=== PATIENT | male | born 2000 ===

== ENCOUNTER 2020-10-10 12:41 | Inpatient (IN) ==
[2020-10-10] MEDS ORDERED: Haloperidol 5 mg/ml SDV IV/IM 5 MG/ML AMP IM ONE ×2 (13:57→18:56)
[2020-10-10] MEDS ORDERED: Diazepam INJ CARPUJECT 5 MG/ML IM ONE (13:57)
[2020-10-10] MEDS ORDERED: Diazepam INJ CARPUJECT 5 MG/ML ONE (13:57)
[2020-10-10] MEDS ORDERED: Haloperidol 5 mg/ml SDV IV/IM 5 MG/ML AMP ONE (13:58)
[2020-10-10] MEDS ORDERED: LORazepam 2 mg VIAL 1 ml IM ONE (18:56)
[2020-10-10] MEDS ORDERED: Lorazepam PYXIS KEY PRN (18:56)
[2020-10-10] MEDS ORDERED: LORazepam 2 mg VIAL 1 ml ONE (18:57)
[2020-10-10 19:00] LABS: ABS Basophils 0.1 10^3/ul (0-0.2); ABS Eosinophils 0.2 10^3/ul (0-0.6); ABS Lymphocytes 3.7 10^3/ul (1.0-4.8); ABS Monocytes 1.2 10^3/ul (0-0.8); ABS Neutrophils 6.7 10^3/ul (1.5-7.7); Eosinophil % 1.6 %; Hematocrit 45 % (42-52); Hemoglobin 15.2 g/dL (14.0-18.0); Lymphocyte % 30.6 %; Mean Corpuscular HGB Conc 34 g/dL (31-36); Mean Corpuscular Hemoglobin 28 pg (27-31); Mean Corpuscular Volume 84 fL (80-94); Mean Platelet Volume 8.3 fL (7.4-10.4); Nucleated Red Blood Cells % 0.1; Platelet Count 257 10^3/uL (150-450); Red Blood Count 5.37 10^6 /uL (4.18-5.48); Red Cell Distribution Width 13 % (10-15)
[2020-10-10 19:20] LABS: ALT 15 U/L (7-52); AST 27 U/L (13-39); Albumin 4.2 g/dL (3.2-5.2); Albumin/Globulin Ratio 1.7 (1-3); Alkaline Phosphatase 49 U/L (35-149); Anion Gap 8 mmol/L (2-11); Blood Urea Nitrogen 13 mg/dL (6-24); CO2 Carbon Dioxide 22 mmol/L (22-32); Calcium 9.4 mg/dL (8.6-10.3); Chloride 108 mmol/L (101-111); EGFR African American 156.7 (>60); EGFR Non-African American 129.5 (>60); Globulin 2.5 g/dL (2-4); Glucose 79 mg/dL (70-100); Sodium 138 mmol/L (135-145); Total Protein 6.7 g/dL (6.4-8.9)
[2020-10-10 19:53] LABS: Acetaminophen < 15 mcg/mL; Alcohol, S < 10 mg/dL (<10); Salicylate < 2.50 mg/dL (<30)
[2020-10-10 20:07] LABS: TSH Ultra Thyroid Stim Horm 0.82 mcIU/mL (0.34-5.60)
[2020-10-10] MEDS ORDERED: Al Hydrox/Mg Hydrox/Simet LIQ 30 ML UDC PO PRN (21:53)
[2020-10-11] MEDS: Nicotine PATCH 21 MG/24 HR PATCH TRANSDERM SCH (14:16)
[2020-10-11] MEDS: Nicotine GUM 2MG FRUIT FLAVOR PO PRN ×3 (15:15→23:45)
[2020-10-12] MEDS: Nicotine GUM 2MG FRUIT FLAVOR PO PRN ×4 (03:20→16:28)
[2020-10-12] MEDS: Nicotine PATCH 21 MG/24 HR PATCH TRANSDERM SCH (09:02)
[2020-10-13] MEDS: Nicotine PATCH 21 MG/24 HR PATCH TRANSDERM SCH (08:37)
[2020-10-13] MEDS: Nicotine GUM 2MG FRUIT FLAVOR PO PRN (11:29)
[2020-10-14] MEDS: Nicotine PATCH 21 MG/24 HR PATCH TRANSDERM SCH ×2 (07:34→08:04)
[2020-10-14] MEDS: Nicotine GUM 2MG FRUIT FLAVOR PO PRN ×4 (08:06→15:31)
[2020-10-14] MEDS ORDERED: Paliperidone SUSTENNA 234 MG/1.5 ML IM ONE (14:00)
[2020-10-14] MEDS ORDERED: COVID-19 VACCINE, AD26(JANSSEN)/PF 0.5 ML IM ONE (14:30)
[2020-10-15] MEDS: Nicotine PATCH 21 MG/24 HR PATCH TRANSDERM SCH (07:51)
[2020-10-15 08:16] LABS: HDL Cholesterol 35.6 mg/dL
[2020-10-15] MEDS: Nicotine GUM 2MG FRUIT FLAVOR PO PRN ×5 (08:37→21:23)
[2020-10-15] MEDS: risperiDONE-M 1 mg Oradis TAB PO PRN (09:34)
[2020-10-16] MEDS: Nicotine GUM 2MG FRUIT FLAVOR PO PRN ×3 (06:42→17:30)
[2020-10-16] MEDS: Nicotine PATCH 21 MG/24 HR PATCH TRANSDERM SCH (08:49)
[2020-10-16] MEDS: risperiDONE-M 1 mg Oradis TAB PO PRN ×2 (12:01→17:31)
[2020-10-16] MEDS ORDERED: LORazepam 2 mg VIAL 1 ml ONE (12:09)
[2020-10-16] MEDS ORDERED: Haloperidol 5 mg/ml SDV IV/IM 5 MG/ML AMP ONE (12:09)
[2020-10-16] MEDS ORDERED: diPHENhydraMINE IV 50 MG/ML 1 ml VIAL (BENADRYL) ONE (12:09)
[2020-10-17] MEDS: Nicotine GUM 2MG FRUIT FLAVOR PO PRN ×3 (05:06→13:10)
[2020-10-17] MEDS: Nicotine PATCH 21 MG/24 HR PATCH TRANSDERM SCH (09:14)
[2020-10-17] MEDS ORDERED: Paliperidone SUSTENNA 156 MG/1 ML IM ONE (14:00)
[2020-10-18] MEDS: Nicotine PATCH 21 MG/24 HR PATCH TRANSDERM SCH (08:31)
[2020-10-18] MEDS: Nicotine GUM 2MG FRUIT FLAVOR PO PRN ×2 (08:31→12:39)
[2020-10-18 15:44] LABS: Hematocrit 45 % (42-52); Hemoglobin 14.8 g/dL (14.0-18.0); Mean Corpuscular HGB Conc 33 g/dL (31-36); Mean Corpuscular Hemoglobin 28 pg (27-31); Mean Corpuscular Volume 85 fL (80-94); Mean Platelet Volume 8.8 fL (7.4-10.4); Platelet Count 204 10^3/uL (150-450); Red Cell Distribution Width 13 % (10-15); White Blood Count 7.7 10^3/uL (3.5-10.8)
[2020-10-18 16:13] LABS: ABS Eosinophils 0.1 10^3/ul (0-0.6); ABS Lymphocytes 2.5 10^3/ul (1.0-4.8); ABS Monocytes 0.7 10^3/ul (0-0.8); ABS Neutrophils 4.4 10^3/ul (1.5-7.7); Eosinophil % 1.1 %; Lymphocyte % 31.9 %
[2020-10-19] MEDS: Nicotine GUM 2MG FRUIT FLAVOR PO PRN ×5 (06:27→18:05)
[2020-10-19] MEDS: Nicotine PATCH 21 MG/24 HR PATCH TRANSDERM SCH (08:52)
[2020-10-20] MEDS: Nicotine GUM 2MG FRUIT FLAVOR PO PRN ×6 (06:17→20:21)
[2020-10-20] MEDS: Nicotine PATCH 21 MG/24 HR PATCH TRANSDERM SCH (08:32)
[2020-10-21] MEDS: Nicotine GUM 2MG FRUIT FLAVOR PO PRN ×4 (06:10→17:44)
[2020-10-21] MEDS: Nicotine PATCH 21 MG/24 HR PATCH TRANSDERM SCH ×2 (07:47→10:10)
[2020-10-22] MEDS: Nicotine GUM 2MG FRUIT FLAVOR PO PRN ×5 (05:52→20:04)
[2020-10-22] MEDS: Nicotine PATCH 21 MG/24 HR PATCH TRANSDERM SCH (08:59)
[2020-10-23] MEDS: Nicotine PATCH 21 MG/24 HR PATCH TRANSDERM SCH (07:23)
[2020-10-23] MEDS: Nicotine GUM 2MG FRUIT FLAVOR PO PRN ×4 (07:23→17:56)
[2020-10-23] MEDS: Albuterol HFA INHALER 8 gm MDI INH PRN ×2 (15:36→18:32)
[2020-10-24] MEDS: Nicotine PATCH 21 MG/24 HR PATCH TRANSDERM SCH (07:48)
[2020-10-24] MEDS: Nicotine GUM 2MG FRUIT FLAVOR PO PRN ×4 (07:49→16:06)
[2020-10-24] MEDS: Albuterol HFA INHALER 8 gm MDI INH PRN (10:49)
[2020-10-25] MEDS: Nicotine GUM 2MG FRUIT FLAVOR PO PRN ×2 (06:33→13:38)
[2020-10-25 09:01] VITALS: BP 136/67
[2020-10-25] MEDS: Nicotine PATCH 21 MG/24 HR PATCH TRANSDERM SCH (13:37)
== END 2020-10-25 15:30 | disposition home or self-care (01) | DRG 753 ==
LOC: ED 12:41 → BSU 20:52
PROVIDERS: ADMIT Psychiatry & Neurology Psychiatry; ATTEND Psychiatry & Neurology Psychiatry

== ENCOUNTER 2020-11-01 13:45 | Inpatient (IN) ==
[2020-11-01 14:50] LABS: Urine Benzodiazepine Screen None Detected (None Detect); Urine Cannabinoids Screen Presumptive Positive (None Detect); Urine Opiates Screen None Detected (None Detect)
[2020-11-01 15:06] LABS: Urine Appearance Clear; Urine Bilirubin Negative (Negative); Urine Blood Negative (Negative); Urine Color Yellow; Urine Glucose Negative (Negative); Urine Ketones Negative (Negative); Urine Nitrite Negative (Negative); Urine Protein Negative (Negative); Urine Specific Gravity 1.012 (1.002-1.030); Urine Urobilinogen Negative (Negative)
[2020-11-01 16:01] LABS: ABS Basophils 0.1 10^3/ul (0-0.2); ABS Eosinophils 0.2 10^3/ul (0-0.6); ABS Lymphocytes 1.6 10^3/ul (1.0-4.8); ABS Monocytes 1.5 10^3/ul (0-0.8); ABS Neutrophils 7.2 10^3/ul (1.5-7.7); Eosinophil % 1.7 %; Hematocrit 41 % (42-52); Hemoglobin 13.7 g/dL (14.0-18.0); Lymphocyte % 15.5 %; Mean Corpuscular HGB Conc 33 g/dL (31-36); Mean Corpuscular Hemoglobin 28 pg (27-31); Mean Corpuscular Volume 85 fL (80-94); Mean Platelet Volume 7.8 fL (7.4-10.4); Platelet Count 270 10^3/uL (150-450); Red Blood Count 4.83 10^6 /uL (4.18-5.48); Red Cell Distribution Width 15 % (10-15); White Blood Count 10.5 10^3/uL (3.5-10.8)
[2020-11-01 16:18] LABS: ALT 164 U/L (7-52); AST 86 U/L (13-39); Albumin 4.2 g/dL (3.2-5.2); Albumin/Globulin Ratio 1.5 (1-3); Alkaline Phosphatase 54 U/L (35-149); Anion Gap 5 mmol/L (2-11); Blood Urea Nitrogen 10 mg/dL (6-24); CO2 Carbon Dioxide 25 mmol/L (22-32); Calcium 9.3 mg/dL (8.6-10.3); Chloride 107 mmol/L (101-111); EGFR African American 166.7 (>60); EGFR Non-African American 137.8 (>60); Globulin 2.8 g/dL (2-4); Glucose 105 mg/dL (70-100); Potassium 4.3 mmol/L (3.5-5.0); Sodium 137 mmol/L (135-145)
[2020-11-01 17:00] LABS: Acetaminophen < 15 mcg/mL; Alcohol, S < 10 mg/dL (<10); Salicylate < 2.50 mg/dL (<30)
[2020-11-01 17:01] LABS: TSH Ultra Thyroid Stim Horm 1.23 mcIU/mL (0.34-5.60)
[2020-11-02] MEDS ORDERED: Al Hydrox/Mg Hydrox/Simet LIQ 30 ML UDC PO PRN (00:55)
[2020-11-02] MEDS: Vitamin THERAPEUTIC TAB PO SCH (07:49)
[2020-11-02] MEDS: Nicotine PATCH 21 MG/24 HR PATCH TRANSDERM SCH (08:07)
[2020-11-02 08:33] LABS: HDL Cholesterol 47.5 mg/dL
[2020-11-02] MEDS ORDERED: diPHENhydraMINE IV 50 MG/ML 1 ml VIAL (BENADRYL) ONE (10:38)
[2020-11-02] MEDS ORDERED: Haloperidol 5 mg/ml SDV IV/IM 5 MG/ML AMP ONE (10:38)
[2020-11-03] MEDS: Vitamin THERAPEUTIC TAB PO SCH (08:02)
[2020-11-03] MEDS: Nicotine PATCH 21 MG/24 HR PATCH TRANSDERM SCH (08:29)
[2020-11-03] MEDS: Nicotine Lozenge mini 4 MG LOZNG.MINI MT PRN ×2 (16:52→18:43)
[2020-11-04] MEDS: Nicotine Lozenge mini 4 MG LOZNG.MINI MT PRN ×4 (01:48→16:20)
[2020-11-04] MEDS: Nicotine PATCH 21 MG/24 HR PATCH TRANSDERM SCH (08:14)
[2020-11-04] MEDS: Vitamin THERAPEUTIC TAB PO SCH (08:14)
[2020-11-05] MEDS: Vitamin THERAPEUTIC TAB PO SCH (08:09)
[2020-11-05] MEDS: Nicotine PATCH 21 MG/24 HR PATCH TRANSDERM SCH (08:10)
[2020-11-05] MEDS: Nicotine GUM 4MG FRUIT FLAVOR PO PRN ×3 (08:46→14:57)
[2020-11-05] MEDS: Nicotine Lozenge mini 4 MG LOZNG.MINI MT PRN ×2 (14:04→16:53)
[2020-11-05] MEDS: Albuterol HFA INHALER 8 gm MDI INH PRN (16:03)
[2020-11-06] MEDS: Nicotine Lozenge mini 4 MG LOZNG.MINI MT PRN ×4 (03:20→12:34)
[2020-11-06] MEDS: Nicotine GUM 4MG FRUIT FLAVOR PO PRN ×2 (03:48→11:15)
[2020-11-06] MEDS: Nicotine PATCH 21 MG/24 HR PATCH TRANSDERM SCH (07:59)
[2020-11-06] MEDS: Vitamin THERAPEUTIC TAB PO SCH (07:59)
[2020-11-06] MEDS: Albuterol HFA INHALER 8 gm MDI INH PRN (10:22)
[2020-11-06] MEDS: Nicotine GUM 2MG FRUIT FLAVOR PO PRN ×2 (12:44→15:59)
[2020-11-07] MEDS: Vitamin THERAPEUTIC TAB PO SCH (07:39)
[2020-11-07] MEDS: Nicotine Lozenge mini 4 MG LOZNG.MINI MT PRN (07:40)
[2020-11-07] MEDS: Nicotine PATCH 21 MG/24 HR PATCH TRANSDERM SCH (07:42)
[2020-11-07] MEDS: Nicotine GUM 2MG FRUIT FLAVOR PO PRN ×2 (08:33→11:52)
[2020-11-08] MEDS: Vitamin THERAPEUTIC TAB PO SCH (09:04)
[2020-11-08] MEDS: Nicotine Lozenge mini 4 MG LOZNG.MINI MT PRN ×2 (09:08→19:18)
[2020-11-08] MEDS: Nicotine PATCH 21 MG/24 HR PATCH TRANSDERM SCH (09:09)
[2020-11-09] MEDS: Vitamin THERAPEUTIC TAB PO SCH (08:02)
[2020-11-09] MEDS: Albuterol HFA INHALER 8 gm MDI INH PRN ×2 (08:03→18:07)
[2020-11-09] MEDS: Nicotine PATCH 21 MG/24 HR PATCH TRANSDERM SCH (08:04)
[2020-11-09] MEDS: Nicotine Lozenge mini 4 MG LOZNG.MINI MT PRN ×3 (08:57→15:31)
[2020-11-09] MEDS: Nicotine GUM 4MG FRUIT FLAVOR PO PRN ×2 (14:26→18:16)
[2020-11-09 16:05] LABS: ABS Basophils 0.2 10^3/ul (0-0.2); ABS Eosinophils 0.2 10^3/ul (0-0.6); ABS Lymphocytes 2.5 10^3/ul (1.0-4.8); ABS Monocytes 1.2 10^3/ul (0-0.8); ABS Neutrophils 14.7 10^3/ul (1.5-7.7); Eosinophil % 0.9 %; Hematocrit 42 % (42-52); Hemoglobin 13.9 g/dL (14.0-18.0); Lymphocyte % 13.3 %; Mean Corpuscular HGB Conc 33 g/dL (31-36); Mean Corpuscular Hemoglobin 29 pg (27-31); Mean Corpuscular Volume 86 fL (80-94); Mean Platelet Volume 7.5 fL (7.4-10.4); Platelet Count 317 10^3/uL (150-450); Red Blood Count 4.88 10^6 /uL (4.18-5.48); Red Cell Distribution Width 15 % (10-15); White Blood Count 18.7 10^3/uL (3.5-10.8)
[2020-11-10] MEDS: Nicotine Lozenge mini 4 MG LOZNG.MINI MT PRN (09:02)
[2020-11-10] MEDS: Nicotine PATCH 21 MG/24 HR PATCH TRANSDERM SCH (09:06)
[2020-11-10] MEDS: Vitamin THERAPEUTIC TAB PO SCH (09:06)
[2020-11-11] MEDS: Nicotine GUM 2MG FRUIT FLAVOR PO PRN (04:49)
[2020-11-11] MEDS: Vitamin THERAPEUTIC TAB PO SCH (08:30)
[2020-11-11] MEDS: Nicotine PATCH 21 MG/24 HR PATCH TRANSDERM SCH (08:32)
[2020-11-11] MEDS: Nicotine Lozenge mini 4 MG LOZNG.MINI MT PRN ×5 (08:33→18:44)
[2020-11-12] MEDS: Vitamin THERAPEUTIC TAB PO SCH (08:02)
[2020-11-12] MEDS: Nicotine Lozenge mini 4 MG LOZNG.MINI MT PRN ×2 (08:03→19:03)
[2020-11-12] MEDS: Nicotine PATCH 21 MG/24 HR PATCH TRANSDERM SCH (08:03)
[2020-11-12] MEDS: Nicotine GUM 4MG FRUIT FLAVOR PO PRN (12:26)
[2020-11-12] MEDS: Carbamide Peroxide 6.5% OTIC 15 ML BTL RIGHT EAR SCH ×2 (12:27→20:15)
[2020-11-12] MEDS: Amoxicillin/Clavul 875/125 TAB (Augmentin 875 tab) PO SCH ×2 (12:27→20:12)
[2020-11-13] MEDS: Amoxicillin/Clavul 875/125 TAB (Augmentin 875 tab) PO SCH ×2 (08:36→20:30)
[2020-11-13] MEDS: Vitamin THERAPEUTIC TAB PO SCH (08:36)
[2020-11-13] MEDS: Carbamide Peroxide 6.5% OTIC 15 ML BTL RIGHT EAR SCH ×2 (08:38→20:34)
[2020-11-13] MEDS: Nicotine PATCH 21 MG/24 HR PATCH TRANSDERM SCH (09:04)
[2020-11-13] MEDS: Nicotine Lozenge mini 4 MG LOZNG.MINI MT PRN (20:36)
[2020-11-14] MEDS: Vitamin THERAPEUTIC TAB PO SCH (10:45)
[2020-11-14] MEDS: Amoxicillin/Clavul 875/125 TAB (Augmentin 875 tab) PO SCH ×2 (10:45→22:56)
[2020-11-14] MEDS: Nicotine GUM 2MG FRUIT FLAVOR PO PRN (10:47)
[2020-11-14] MEDS: Nicotine PATCH 21 MG/24 HR PATCH TRANSDERM SCH (10:48)
[2020-11-14] MEDS: Carbamide Peroxide 6.5% OTIC 15 ML BTL RIGHT EAR SCH ×2 (10:49→22:56)
[2020-11-15 08:21] LABS: ABS Basophils 0.1 10^3/ul (0-0.2); ABS Eosinophils 0.3 10^3/ul (0-0.6); ABS Monocytes 0.9 10^3/ul (0-0.8); ABS Neutrophils 3.5 10^3/ul (1.5-7.7); Eosinophil % 3.8 %; Hematocrit 45 % (42-52); Hemoglobin 14.9 g/dL (14.0-18.0); Lymphocyte % 29.5 %; Mean Corpuscular HGB Conc 33 g/dL (31-36); Mean Corpuscular Hemoglobin 28 pg (27-31); Mean Corpuscular Volume 86 fL (80-94); Nucleated Red Blood Cells % 0.1; Platelet Count 277 10^3/uL (150-450); Red Blood Count 5.26 10^6 /uL (4.18-5.48); Red Cell Distribution Width 15 % (10-15); White Blood Count 6.7 10^3/uL (3.5-10.8)
[2020-11-15] MEDS: Vitamin THERAPEUTIC TAB PO SCH (08:48)
[2020-11-15] MEDS: Amoxicillin/Clavul 875/125 TAB (Augmentin 875 tab) PO SCH ×2 (08:48→20:01)
[2020-11-15] MEDS: Carbamide Peroxide 6.5% OTIC 15 ML BTL RIGHT EAR SCH ×2 (08:49→20:01)
[2020-11-15] MEDS: Nicotine PATCH 21 MG/24 HR PATCH TRANSDERM SCH (08:50)
[2020-11-15] MEDS: Nicotine Lozenge mini 4 MG LOZNG.MINI MT PRN ×2 (13:08→20:23)
[2020-11-16] MEDS: Carbamide Peroxide 6.5% OTIC 15 ML BTL RIGHT EAR SCH ×2 (08:53→20:28)
[2020-11-16] MEDS: Nicotine GUM 4MG FRUIT FLAVOR PO PRN (08:53)
[2020-11-16] MEDS: Amoxicillin/Clavul 875/125 TAB (Augmentin 875 tab) PO SCH ×2 (08:53→20:28)
[2020-11-16] MEDS: Vitamin THERAPEUTIC TAB PO SCH (08:53)
[2020-11-16] MEDS: Nicotine PATCH 21 MG/24 HR PATCH TRANSDERM SCH (08:54)
[2020-11-16] MEDS: Nicotine Lozenge mini 4 MG LOZNG.MINI MT PRN ×3 (14:57→21:14)
[2020-11-17] MEDS: Vitamin THERAPEUTIC TAB PO SCH (09:10)
[2020-11-17] MEDS: Carbamide Peroxide 6.5% OTIC 15 ML BTL RIGHT EAR SCH ×2 (09:11→20:48)
[2020-11-17] MEDS: Amoxicillin/Clavul 875/125 TAB (Augmentin 875 tab) PO SCH ×2 (09:11→20:48)
[2020-11-17] MEDS: Nicotine PATCH 21 MG/24 HR PATCH TRANSDERM SCH (09:11)
[2020-11-17] MEDS: Nicotine Lozenge mini 4 MG LOZNG.MINI MT PRN ×3 (10:27→18:38)
[2020-11-18] MEDS: Carbamide Peroxide 6.5% OTIC 15 ML BTL RIGHT EAR SCH ×2 (09:47→20:25)
[2020-11-18] MEDS: Amoxicillin/Clavul 875/125 TAB (Augmentin 875 tab) PO SCH ×2 (09:48→20:25)
[2020-11-18] MEDS: Vitamin THERAPEUTIC TAB PO SCH (09:49)
[2020-11-18] MEDS: Nicotine PATCH 21 MG/24 HR PATCH TRANSDERM SCH (09:51)
[2020-11-18] MEDS: Nicotine Lozenge mini 4 MG LOZNG.MINI MT PRN ×2 (12:32→15:22)
[2020-11-18] MEDS: Nicotine GUM 2MG FRUIT FLAVOR PO PRN (16:48)
[2020-11-19 00:41] LABS: Clozapine 70 ng/mL (350-600); Clozapine & Norclozapine Level 97 ng/mL; Norclozapine 27 ng/mL
[2020-11-19 07:58] LABS: Hematocrit 45 % (42-52); Hemoglobin 14.7 g/dL (14.0-18.0); Mean Corpuscular HGB Conc 33 g/dL (31-36); Mean Corpuscular Hemoglobin 29 pg (27-31); Mean Corpuscular Volume 87 fL (80-94); Mean Platelet Volume 8.4 fL (7.4-10.4); Platelet Count 229 10^3/uL (150-450); Red Blood Count 5.12 10^6 /uL (4.18-5.48); Red Cell Distribution Width 15 % (10-15); White Blood Count 9.3 10^3/uL (3.5-10.8)
[2020-11-19 08:23] LABS: ABS Eosinophils 0.7 10^3/ul (0-0.6); ABS Lymphocytes 1.4 10^3/ul (1.0-4.8); ABS Monocytes 1.8 10^3/ul (0-0.8); ABS Neutrophils 5.5 10^3/ul (1.5-7.7); Eosinophil % 7.3 %; Lymphocyte % 14.6 %
[2020-11-19] MEDS: Vitamin THERAPEUTIC TAB PO SCH (08:57)
[2020-11-19] MEDS: Amoxicillin/Clavul 875/125 TAB (Augmentin 875 tab) PO SCH ×2 (13:09→21:28)
[2020-11-19] MEDS: Nicotine Lozenge mini 4 MG LOZNG.MINI MT PRN ×2 (13:10→15:41)
[2020-11-19] MEDS: Carbamide Peroxide 6.5% OTIC 15 ML BTL RIGHT EAR SCH ×2 (13:11→21:29)
[2020-11-19] MEDS: Nicotine GUM 4MG FRUIT FLAVOR PO PRN (17:42)
[2020-11-20] MEDS: Carbamide Peroxide 6.5% OTIC 15 ML BTL RIGHT EAR SCH (08:59)
[2020-11-20] MEDS: Amoxicillin/Clavul 875/125 TAB (Augmentin 875 tab) PO SCH (09:00)
[2020-11-20] MEDS: Vitamin THERAPEUTIC TAB PO SCH (09:01)
[2020-11-20] MEDS: Nicotine Lozenge mini 4 MG LOZNG.MINI MT PRN (09:03)
[2020-11-20 11:01] VITALS: BP 110/73
== END 2020-11-20 12:05 | disposition home or self-care (01) | DRG 753 ==
LOC: ED 13:45 → BSU 23:13
PROVIDERS: ADMIT Psychiatry & Neurology Psychiatry; ATTEND Psychiatry & Neurology Psychiatry

== ENCOUNTER 2024-03-20 16:31 | Inpatient (IN) ==
[2024-03-20] MEDS ORDERED: LORazepam 2 mg VIAL 1 ml ONE (16:36)
[2024-03-20] MEDS: LORazepam 2 mg VIAL 1 ml IV ONE (16:39)
[2024-03-20] MEDS: Haloperidol 5 mg/ml SDV IV/IM 5 MG/ML AMP IV ONE (16:40)
[2024-03-20] MEDS ORDERED: Haloperidol 5 mg/ml SDV IV/IM 5 MG/ML AMP ONE (16:51)
[2024-03-20] MEDS ORDERED: diphenhydrAMINE 50 MG/ML INJ SYRINGE *CHOA ONE (16:51)
[2024-03-20 17:18] LABS: Hematocrit 46.2 % (38-53); Hemoglobin 15.2 g/dL (13.2-16.3); Mean Corpuscular Hemoglobin 28.5 pg (27-33); Mean Corpuscular Hgb Conc 32.9 g/dL (31-36); Mean Corpuscular Volume 86.9 fL (80-97); Platelet Count 387 10^3/uL (150-450); Red Blood Count 5.32 10^6/uL (4.06-5.63); Red Cell Distribution Width 13.6 % (12-17); White Blood Count 24.9 10^3/uL (3.6-10.2)
[2024-03-20 17:46] LABS: ALT 18 U/L (7-52); AST 23 U/L (13-39); Acetaminophen < 15 mcg/mL; Albumin 4.7 g/dL (3.2-5.2); Albumin/Globulin Ratio 1.9 (1-3); Alcohol, S < 13 mg/dL (<13); Alkaline Phosphatase 73 U/L (35-149); Anion Gap 12 mmol/L (2-16); Blood Urea Nitrogen 4 mg/dL (6-24); CO2 Carbon Dioxide 27 mmol/L (22-32); Calcium 10.2 mg/dL (8.6-10.3); Chloride 100 mmol/L (101-111); Creatinine, Serum 0.75 mg/dL (0.67-1.17); Globulin 2.5 g/dL (2-4); Glucose 114 mg/dL (70-100); Potassium 4.3 mmol/L (3.5-5.0); Salicylate < 2.50 mg/dL (<30); Sodium 139 mmol/L (135-145); Total Bilirubin 0.5 mg/dL (0.2-1.0); Total Protein 7.2 g/dL (6.4-8.9); eGFR CKD-EPI 129.2 (>60)
[2024-03-20 18:28] LABS: Venous Bicarbonate HCO3 27.2 mmol/L (24-28)
[2024-03-20] MEDS: Lactated Ringers 1000 ml BAG 1,000 ML IV ONE (18:41)
[2024-03-20 19:02] LABS: Magnesium 1.9 mg/dL (1.9-2.7)
[2024-03-20 19:49] LABS: ABS Basophils 0.1 10^3/uL (0.0-0.1); ABS Eosinophils 0.2 10^3/uL (0.0-0.5); ABS Lymphocytes 2.6 10^3/uL (1.0-4.8); ABS Neutrophils 20.1 10^3/uL (1.5-7.6); ABS Nucleated RBC 0.02 10^3/ul; Eosinophil % 0.6 %; Lymphocyte % 10.4 %; Nucleated Red Blood Cells % 0.1 %/100WBC (0.0-0.8); RBC Morphology Normal (Normal)
[2024-03-20] MEDS ORDERED: Ketamine HCL 50 mg/ml 10 ml VIAL (500 MG) ONE (20:02)
[2024-03-20] MEDS ORDERED: Rocuronium 50 mg VIAL 10 mg/ml 5 ml VIAL (50 mg) ONE (20:02)
[2024-03-20 20:03] LABS: Hematocrit 43.1 % (38-53); Hemoglobin 14.2 g/dL (13.2-16.3); Mean Corpuscular Hemoglobin 28.3 pg (27-33); Mean Corpuscular Hgb Conc 32.9 g/dL (31-36); Mean Corpuscular Volume 86.2 fL (80-97); Mean Platelet Volume 7.6 fL (7.5-11.2); Platelet Count 386 10^3/uL (150-450); Red Cell Distribution Width 13.6 % (12-17); White Blood Count 24.4 10^3/uL (3.6-10.2)
[2024-03-20] MEDS: Propofol 10 mg/ml 100 ML BTL 1,000 MG/100 ML BTL IV SCH (20:05)
[2024-03-20 20:07] LABS: ABS Basophils 0.2 10^3/uL (0.0-0.1); ABS Eosinophils 0.2 10^3/uL (0.0-0.5); ABS Lymphocytes 3.6 10^3/uL (1.0-4.8); ABS Neutrophils 18.5 10^3/uL (1.5-7.6); ABS Nucleated RBC 0.02 10^3/ul; Eosinophil % 0.8 %; Lymphocyte % 14.7 %; Nucleated Red Blood Cells % 0.1 %/100WBC (0.0-0.8); RBC Morphology Normal (Normal)
[2024-03-20] MEDS: Propofol 10 mg/ml 100 ML BTL 1,000 MG/100 ML BTL ONE (20:10)
[2024-03-20] MEDS ORDERED: fentaNYL 100 mcg/2 ml 50 MCG/ML VIAL IV SLOW PU PRN (20:22)
[2024-03-20 20:39] LABS: Albumin 4.3 g/dL (3.2-5.2); Calcium 9.6 mg/dL (8.6-10.3); Creatinine, Serum 0.78 mg/dL (0.67-1.17); Globulin 2.2 g/dL (2-4); Total Bilirubin 0.5 mg/dL (0.2-1.0); Total Protein 6.5 g/dL (6.4-8.9); eGFR CKD-EPI 127.7 (>60)
[2024-03-20 20:43] LABS: Urine Appearance Clear; Urine Bilirubin Negative (Negative); Urine Blood Negative (Negative); Urine Color Light-Yellow; Urine Glucose Negative (Negative); Urine Ketones Negative (Negative); Urine Nitrite Negative (Negative); Urine Protein Negative (Negative); Urine Specific Gravity 1.013 (1.002-1.030); Urine Urobilinogen Negative (Negative); Urine pH 6.5 (5.0-8.0)
[2024-03-20] MEDS: Charcoal Activated/SORBITOL 50 GM/240 ML BTL NG TUBE ONE (20:48)
[2024-03-20 20:59] LABS: Urine Benzodiazepine Screen None Detected (None Detect); Urine Cannabinoids Screen Presumptive Positive (None Detect); Urine Opiates Screen None Detected (None Detect)
[2024-03-20 21:18] LABS: Magnesium 1.9 mg/dL (1.9-2.7)
[2024-03-20] MEDS: Pantoprazole VIAL 40 MG VIAL IV SCH (21:26)
[2024-03-21] MEDS: Enoxaparin 40 MG/0.4 ML SYR SUBCUT SCH (00:26)
[2024-03-21] MEDS: Chlorhexidine MOUTHWASH 0.12% 15 ML UDC TOPICAL SCH (00:27)
[2024-03-21] MEDS: Rocuronium 50 mg VIAL 10 mg/ml 5 ml VIAL (50 mg) ONE ×3 (01:24→12:15)
[2024-03-21 02:05] LABS: INR 1.22 (0.85-1.14)
[2024-03-21] MEDS: fentaNYL 100 mcg/2 ml 50 MCG/ML VIAL IV SLOW PU PRN (03:20)
[2024-03-21 04:32] LABS: ABS Basophils 0.1 10^3/uL (0.0-0.1); ABS Eosinophils 0.5 10^3/uL (0.0-0.5); ABS Lymphocytes 3.3 10^3/uL (1.0-4.8); ABS Monocytes 1.2 10^3/uL (0.0-1.1); ABS Neutrophils 7.3 10^3/uL (1.5-7.6); ABS Nucleated RBC 0.02 10^3/ul; Eosinophil % 4.4 %; Hematocrit 40.5 % (38-53); Hemoglobin 13.4 g/dL (13.2-16.3); Lymphocyte % 26.7 %; Mean Corpuscular Hemoglobin 28.5 pg (27-33); Mean Corpuscular Hgb Conc 33.1 g/dL (31-36); Mean Corpuscular Volume 86.2 fL (80-97); Mean Platelet Volume 7.5 fL (7.5-11.2); Nucleated Red Blood Cells % 0.2 %/100WBC (0.0-0.8); Platelet Count 345 10^3/uL (150-450); Red Blood Count 4.69 10^6/uL (4.06-5.63); White Blood Count 12.5 10^3/uL (3.6-10.2)
[2024-03-21 05:13] LABS: ALT 13 U/L (7-52); AST 16 U/L (13-39); Albumin 3.8 g/dL (3.2-5.2); Albumin/Globulin Ratio 1.8 (1-3); Alkaline Phosphatase 54 U/L (35-149); Anion Gap 6 mmol/L (2-16); Blood Urea Nitrogen 6 mg/dL (6-24); CO2 Carbon Dioxide 24 mmol/L (22-32); Calcium 9.1 mg/dL (8.6-10.3); Chloride 108 mmol/L (101-111); Creatine Kinase 197 U/L (10-223); Creatinine, Serum 0.75 mg/dL (0.67-1.17); Globulin 2.1 g/dL (2-4); Glucose 94 mg/dL (70-100); Magnesium 1.9 mg/dL (1.9-2.7); Potassium 3.9 mmol/L (3.5-5.0); Sodium 138 mmol/L (135-145); Total Bilirubin 0.3 mg/dL (0.2-1.0); Total Protein 5.9 g/dL (6.4-8.9); eGFR CKD-EPI 129.2 (>60)
[2024-03-21] MEDS: Magnesium Sulf 4 GM/100 ML IV 4,000 MG/100 ML BAG IVPB ONE (05:19)
[2024-03-21] MEDS: Charcoal Activated/SORBITOL 50 GM/240 ML BTL NG TUBE SCH (05:19)
[2024-03-21] MEDS ORDERED: Etomidate 40 mg/20 ml (2 MG/ML) 20 ml VIAL (40 mg) ONE (11:41)
[2024-03-21] MEDS ORDERED: Rocuronium 50 mg VIAL 10 mg/ml 5 ml VIAL (50 mg) ONE (11:41)
[2024-03-21] MEDS: Succinylcholine 200 mg VIAL 20 mg/ml 10 ml VIAL (200 mg) ONE (12:15)
[2024-03-21] MEDS: Acetaminophen IV 1 GM/100ML 1,000 MG/100 ML BAG IV PRN (20:35)
[2024-03-22] MEDS: Midazolam 5 mg/5 ml VIAL 1 mg/ml 5 ml VIAL (5 mg) IV SLOW PU PRN ×3 (01:20→19:10)
[2024-03-22] MEDS: Midazolam 5 mg/5 ml VIAL 1 mg/ml 5 ml VIAL (5 mg) ONE (02:12)
[2024-03-22 04:47] LABS: Hematocrit 41.3 % (38-53); Hemoglobin 13.8 g/dL (13.2-16.3); Mean Corpuscular Hgb Conc 33.4 g/dL (31-36); Mean Corpuscular Volume 86.8 fL (80-97); Platelet Count 359 10^3/uL (150-450); Red Blood Count 4.76 10^6/uL (4.06-5.63); White Blood Count 16.5 10^3/uL (3.6-10.2)
[2024-03-22 05:17] LABS: ABS Basophils 0.2 10^3/uL (0.0-0.1); ABS Eosinophils 0.9 10^3/uL (0.0-0.5); ABS Lymphocytes 3.1 10^3/uL (1.0-4.8); ABS Monocytes 2.1 10^3/uL (0.0-1.1); ABS Neutrophils 10.2 10^3/uL (1.5-7.6); ABS Nucleated RBC 0.02 10^3/ul; Eosinophil % 5.6 %; Lymphocyte % 18.7 %; Nucleated Red Blood Cells % 0.1 %/100WBC (0.0-0.8)
[2024-03-22 05:42] LABS: ALT 15 U/L (7-52); Albumin 3.8 g/dL (3.2-5.2); Albumin/Globulin Ratio 1.8 (1-3); Alkaline Phosphatase 59 U/L (35-149); Anion Gap 7 mmol/L (2-16); Blood Urea Nitrogen 9 mg/dL (6-24); CO2 Carbon Dioxide 24 mmol/L (22-32); Calcium 8.9 mg/dL (8.6-10.3); Chloride 103 mmol/L (101-111); Creatinine, Serum 0.92 mg/dL (0.67-1.17); Globulin 2.1 g/dL (2-4); Glucose 88 mg/dL (70-100); Sodium 134 mmol/L (135-145); Total Bilirubin 0.6 mg/dL (0.2-1.0); Total Protein 5.9 g/dL (6.4-8.9); eGFR CKD-EPI 119.1 (>60)
[2024-03-22 06:29] LABS: Magnesium 1.9 mg/dL (1.9-2.7); Potassium Redraw 4.3 mmol/L (3.5-5.0)
[2024-03-22] MEDS ORDERED: Midazolam 5 mg/5 ml VIAL 1 mg/ml 5 ml VIAL (5 mg) IV SLOW PU PRN (07:01)
[2024-03-22] MEDS: Midazolam PREMIXBAG 1 MG/ML NS 100 ML IV SCH (07:36)
[2024-03-22] MEDS: Midazolam PREMIXBAG 1 MG/ML NS 100 ML IV ONE (07:42)
[2024-03-22] MEDS: Midazolam 2 mg/2 ml VIAL 1 mg/ml 2 ml VIAL (2 mg) ONE (07:42)
[2024-03-22] MEDS: Midazolam 2 mg/2 ml VIAL 1 mg/ml 2 ml VIAL (2 mg) IV SLOW PU ONE (07:42)
[2024-03-22] MEDS: Norepinephrine 4 MG/250mL D5W 4,000 MCG/250 ML BAG IV SCH (08:40)
[2024-03-22] MEDS: LORazepam VIAL (for drip) 100 MG in D5W 50 ml BAG 50 ML IV SCH (09:15)
[2024-03-22] MEDS: Norepinephrine 4 MG/250mL D5W 4,000 MCG/250 ML BAG IV ONE (09:27)
[2024-03-22] MEDS: LORAZEPAM IV SCH (09:54)
[2024-03-22] MEDS: [UNRECOGNIZED DRUG - OTHER] IV SCH (09:54)
[2024-03-22] MEDS ORDERED: Sulfur Hexaflouride MICROSPHR 25 MG VIAL IV PRN (12:01)
[2024-03-22 13:51] LABS: High Sensitivity Troponin 1 Hr 5 pg/mL (<20)
[2024-03-22] MEDS: Albumin Human 5% 12.5 GM/250 ML BTL IV ONE (16:53)
[2024-03-22] MEDS ORDERED: Senna TAB 8.6 mg TAB NG TUBE PRN (18:02)
[2024-03-22] MEDS: fentaNYL INFUSION 50 mcg/mL VL 2,500 MCG/50 ML VIAL IV SCH (18:18)
[2024-03-22 18:33] LABS: High Sensitivity Troponin 1 Hr < 3 pg/mL (<20)
[2024-03-22] MEDS: Ondansetron 4 mg VIAL 2 MG/ML 2 ml VIAL IV PRN (18:59)
[2024-03-22] MEDS: Ondansetron 4 mg VIAL 2 MG/ML 2 ml VIAL ONE (20:37)
[2024-03-23 06:11] LABS: Hematocrit 39.4 % (38-53); Hemoglobin 13.2 g/dL (13.2-16.3); Mean Corpuscular Hemoglobin 29.1 pg (27-33); Mean Corpuscular Hgb Conc 33.5 g/dL (31-36); Mean Corpuscular Volume 86.6 fL (80-97); Platelet Count 357 10^3/uL (150-450); Red Blood Count 4.54 10^6/uL (4.06-5.63); Red Cell Distribution Width 14.1 % (12-17); White Blood Count 12.8 10^3/uL (3.6-10.2)
[2024-03-23 06:18] LABS: ABS Basophils 0.2 10^3/uL (0.0-0.1); ABS Eosinophils 0.6 10^3/uL (0.0-0.5); ABS Lymphocytes 2.9 10^3/uL (1.0-4.8); ABS Monocytes 1.6 10^3/uL (0.0-1.1); ABS Neutrophils 7.5 10^3/uL (1.5-7.6); Eosinophil % 4.4 %; Lymphocyte % 22.8 %
[2024-03-23 06:46] LABS: Albumin 3.6 g/dL (3.2-5.2); Albumin/Globulin Ratio 1.7 (1-3); Calcium 9.2 mg/dL (8.6-10.3); Creatinine, Serum 1.02 mg/dL (0.67-1.17); Globulin 2.1 g/dL (2-4); Magnesium 1.9 mg/dL (1.9-2.7); Potassium 4.9 mmol/L (3.5-5.0); Total Bilirubin 0.5 mg/dL (0.2-1.0); Total Protein 5.7 g/dL (6.4-8.9); eGFR CKD-EPI 105.3 (>60)
[2024-03-23] MEDS: Polyethylene Glycol 3350 17 GM PACKET NG TUBE SCH (07:26)
[2024-03-23] MEDS: chlorproMAZINE 25 MG/ML 2 ML (50 MG) IV PRN (10:47)
[2024-03-23] MEDS: Metoprolol Tartrate 5 mg VIAL 5 ml VIAL (1 mg/ml) IV ONE (11:21)
[2024-03-23] MEDS: Metoprolol Tartrate 5 mg VIAL 5 ml VIAL (1 mg/ml) ONE (11:21)
[2024-03-23] MEDS: Midazolam PREMIXBAG 1 MG/ML NS 100 ML IV ONE (12:37)
[2024-03-23] MEDS: Midazolam PREMIXBAG 1 MG/ML NS 100 ML IV SCH (12:38)
[2024-03-23 13:16] LABS: High Sensitivity Troponin 1 Hr 48 pg/mL (<20)
[2024-03-23] MEDS ORDERED: Metoprolol Tartrate 5 mg VIAL 5 ml VIAL (1 mg/ml) IV PRN (13:20)
[2024-03-23 15:14] LABS: High Sensitivity Troponin 3 Hr 43 pg/mL (<20)
[2024-03-24 05:07] LABS: Hematocrit 37.9 % (38-53); Hemoglobin 12.5 g/dL (13.2-16.3); Mean Corpuscular Hemoglobin 28.4 pg (27-33); Mean Corpuscular Hgb Conc 32.8 g/dL (31-36); Mean Corpuscular Volume 86.6 fL (80-97); Platelet Count 356 10^3/uL (150-450); Red Blood Count 4.38 10^6/uL (4.06-5.63); Red Cell Distribution Width 13.9 % (12-17); White Blood Count 15.1 10^3/uL (3.6-10.2)
[2024-03-24 05:17] LABS: ABS Basophils 0.1 10^3/uL (0.0-0.1); ABS Eosinophils 0.5 10^3/uL (0.0-0.5); ABS Lymphocytes 2.5 10^3/uL (1.0-4.8); ABS Monocytes 1.9 10^3/uL (0.0-1.1); ABS Neutrophils 10.1 10^3/uL (1.5-7.6); ABS Nucleated RBC 0.01 10^3/ul; Eosinophil % 3.5 %; Lymphocyte % 16.4 %
[2024-03-24 05:18] LABS: Albumin 3.3 g/dL (3.2-5.2); Albumin/Globulin Ratio 1.7 (1-3); Calcium 8.4 mg/dL (8.6-10.3); Creatinine, Serum 0.77 mg/dL (0.67-1.17); Magnesium 1.6 mg/dL (1.9-2.7); Potassium 4.4 mmol/L (3.5-5.0); Total Bilirubin 0.5 mg/dL (0.2-1.0); Total Protein 5.3 g/dL (6.4-8.9); eGFR CKD-EPI 128.2 (>60)
[2024-03-24] MEDS: Magnesium Sulfate 2 gm BAG 2 GM/50 ML BAG IVPB ONE (07:10)
[2024-03-24] MEDS: Magnesium Sulfate 2 gm BAG 2 GM/50 ML BAG ONE (07:27)
[2024-03-24] MEDS: Magnesium Sulf 4 GM/100 ML IV 4,000 MG/100 ML BAG IVPB ONE (07:33)
[2024-03-24] MEDS: Magnesium Sulfate 2 GM IV (Premix) IVPB ONE (08:11)
[2024-03-24 08:34] LABS: Urine Appearance Turbid; Urine Bilirubin Negative (Negative); Urine Blood 1+ (Negative); Urine Color Yellow; Urine Glucose Negative (Negative); Urine Ketones 1+ (Negative); Urine Nitrite Negative (Negative); Urine Protein 1+ (>=30 mg/dL) (Negative); Urine Specific Gravity >1.050 (1.002-1.030); Urine Urobilinogen Negative (Negative)
[2024-03-24 08:36] LABS: Urine Bacteria Absent /HPF (Absent); Urine Red Blood Cell 3+(>10/hpf) /HPF (0-Trace); Urine White Blood Cell 1+(6-10/hpf) /HPF (0-Trace)
[2024-03-24] MEDS: chlorproMAZINE 25 MG/ML 2 ML (50 MG) IV SCH (16:09)
[2024-03-24] MEDS: chlorproMAZINE INJ 50 MG in NS 0.9% 50 ML IV SCH (16:46)
[2024-03-24] MEDS ORDERED: Metoprolol Tartrate 5 mg VIAL 5 ml VIAL (1 mg/ml) IV PRN (20:42)
[2024-03-24] MEDS: Lactated Ringers 1000 ml BAG 1,000 ML IV ONE (20:44)
[2024-03-24] MEDS ORDERED: Metoprolol Tartrate 5 mg VIAL 5 ml VIAL (1 mg/ml) IV SCH (21:00)
[2024-03-25 04:44] LABS: Hematocrit 34.3 % (38-53); Hemoglobin 11.2 g/dL (13.2-16.3); Mean Corpuscular Hemoglobin 28.1 pg (27-33); Mean Corpuscular Hgb Conc 32.7 g/dL (31-36); Mean Corpuscular Volume 85.9 fL (80-97); Mean Platelet Volume 7.4 fL (7.5-11.2); Platelet Count 355 10^3/uL (150-450); Red Cell Distribution Width 13.2 % (12-17); White Blood Count 21.1 10^3/uL (3.6-10.2)
[2024-03-25 05:42] LABS: Albumin/Globulin Ratio 1.5 (1-3); Calcium 8.4 mg/dL (8.6-10.3); Creatinine, Serum 0.55 mg/dL (0.67-1.17); HDL Cholesterol 23.5 mg/dL; Magnesium 1.8 mg/dL (1.9-2.7); Potassium 4.4 mmol/L (3.5-5.0); Total Bilirubin 0.6 mg/dL (0.2-1.0); eGFR CKD-EPI 141.9 (>60)
[2024-03-25 07:37] LABS: ABS Basophils 0.1 10^3/uL (0.0-0.1); ABS Eosinophils 0.4 10^3/uL (0.0-0.5); ABS Lymphocytes 1.6 10^3/uL (1.0-4.8); ABS Monocytes 2.3 10^3/uL (0.0-1.1); ABS Neutrophils 16.7 10^3/uL (1.5-7.6); Eosinophil % 1.7 %; Lymphocyte % 7.6 %
[2024-03-25] MEDS: chlorproMAZINE INJ 50 MG in NS 0.9% 50 ML IV SCH (13:43)
[2024-03-25] MEDS: Lactated Ringers 1000 ml BAG 1,000 ML IV ONE (17:54)
[2024-03-25] MEDS ORDERED: Zosyn per Pharmacy NOTE FOLLOW UP SCH (18:00)
[2024-03-25 18:04] LABS: Hemoglobin 11.2 g/dL (13.2-16.3); Mean Corpuscular Hemoglobin 28.4 pg (27-33); Mean Corpuscular Hgb Conc 33.1 g/dL (31-36); Mean Platelet Volume 7.4 fL (7.5-11.2); Platelet Count 360 10^3/uL (150-450); Red Blood Count 3.95 10^6/uL (4.06-5.63); Red Cell Distribution Width 13.5 % (12-17)
[2024-03-25 18:12] LABS: ABS Basophils 0.1 10^3/uL (0.0-0.1); ABS Eosinophils 0.3 10^3/uL (0.0-0.5); ABS Lymphocytes 1.2 10^3/uL (1.0-4.8); ABS Monocytes 2.5 10^3/uL (0.0-1.1); ABS Neutrophils 18.9 10^3/uL (1.5-7.6); Eosinophil % 1.3 %; Lymphocyte % 5.4 %
[2024-03-25 18:27] LABS: Calcium 8.3 mg/dL (8.6-10.3); Creatinine, Serum 0.53 mg/dL (0.67-1.17); Potassium 4.4 mmol/L (3.5-5.0); eGFR CKD-EPI 143.5 (>60)
[2024-03-25] MEDS: Piperacillin/Tazobac 3.375 BAG 3.375 GM/100 ML BAG IV ONE (18:32)
[2024-03-25] MEDS: Cefepime 2 GM in Dextrose 2 GM/50 ML BAG IV SCH (21:49)
[2024-03-25] MEDS ORDERED: ZOSYN 3.375 GM Q8H per EXTENDED INFUSION IV SCH (22:00)
[2024-03-26 04:15] LABS: ABS Basophils 0.2 10^3/uL (0.0-0.1); ABS Eosinophils 0.3 10^3/uL (0.0-0.5); ABS Monocytes 2.5 10^3/uL (0.0-1.1); ABS Neutrophils 16.9 10^3/uL (1.5-7.6); Eosinophil % 1.5 %; Hematocrit 33.8 % (38-53); Lymphocyte % 9.3 %; Mean Corpuscular Hgb Conc 32.5 g/dL (31-36); Mean Platelet Volume 7.6 fL (7.5-11.2); Platelet Count 368 10^3/uL (150-450); Red Blood Count 3.93 10^6/uL (4.06-5.63); Red Cell Distribution Width 13.2 % (12-17)
[2024-03-26 05:07] LABS: Albumin 2.8 g/dL (3.2-5.2); Albumin/Globulin Ratio 1.3 (1-3); Calcium 8.3 mg/dL (8.6-10.3); Creatinine, Serum 0.51 mg/dL (0.67-1.17); Globulin 2.1 g/dL (2-4); Potassium 4.3 mmol/L (3.5-5.0); Total Bilirubin 0.6 mg/dL (0.2-1.0); Total Protein 4.9 g/dL (6.4-8.9); eGFR CKD-EPI 145.2 (>60)
[2024-03-26] MEDS ORDERED: Zosyn per Pharmacy NOTE FOLLOW UP SCH (09:00)
[2024-03-26] MEDS: Lactated Ringers 1000 ml BAG 1,000 ML IV ONE ×2 (09:31→23:58)
[2024-03-26] MEDS: Piperacillin/Tazobac 3.375 BAG 3.375 GM/100 ML BAG IV ONE (10:50)
[2024-03-26] MEDS: ZOSYN 3.375 GM Q8H per EXTENDED INFUSION IV SCH (14:33)
[2024-03-26] MEDS: fentaNYL 100 mcg/2 ml 50 MCG/ML VIAL IV SLOW PU PRN ×2 (20:22→22:44)
[2024-03-27] MEDS ORDERED: fentaNYL 100 mcg/2 ml 50 MCG/ML VIAL IV SLOW PU PRN (01:15)
[2024-03-27 05:30] LABS: Hematocrit 31.8 % (38-53); Hemoglobin 10.5 g/dL (13.2-16.3); Mean Corpuscular Hemoglobin 28.2 pg (27-33); Mean Corpuscular Volume 85.6 fL (80-97); Mean Platelet Volume 7.5 fL (7.5-11.2); Platelet Count 416 10^3/uL (150-450); Red Blood Count 3.72 10^6/uL (4.06-5.63); Red Cell Distribution Width 13.2 % (12-17); White Blood Count 15.3 10^3/uL (3.6-10.2)
[2024-03-27 05:41] LABS: ABS Eosinophils 0.4 10^3/uL (0.0-0.5); ABS Lymphocytes 1.5 10^3/uL (1.0-4.8); ABS Monocytes 1.8 10^3/uL (0.0-1.1); ABS Neutrophils 11.6 10^3/uL (1.5-7.6); Eosinophil % 2.5 %; Lymphocyte % 9.8 %
[2024-03-27 05:58] LABS: Calcium 8.2 mg/dL (8.6-10.3); Creatinine, Serum 0.48 mg/dL (0.67-1.17); HDL Cholesterol 21.7 mg/dL; Magnesium 1.8 mg/dL (1.9-2.7); Phosphorus 3.5 mg/dL (2.5-5.0); Potassium 4.2 mmol/L (3.5-5.0); eGFR CKD-EPI 147.9 (>60)
[2024-03-27] MEDS: Magnesium Sulfate 2 gm BAG 2 GM/50 ML BAG IVPB ONE (07:50)
[2024-03-27] MEDS: Magnesium Sulfate 2 gm BAG 2 GM/50 ML BAG ONE (08:03)
[2024-03-27] MEDS ORDERED: Dextran 70/Hypromellose Tears Eye Drops 15 ml BTL (for Artificials Tears) BOTH EYES PRN (10:29)
[2024-03-27] MEDS: EPINEPHrine,Rac 2.25% NEB.SOL 0.5 ML INH PRN (11:33)
[2024-03-27 12:10] LABS: C Reactive Protein 188.07 mg/L (<8.01)
[2024-03-27] MEDS: EPINEPHrine,Rac 2.25% NEB.SOL 0.5 ML ONE ×2 (12:19→12:58)
[2024-03-27] MEDS: LORazepam 2 mg VIAL 1 ml ONE (13:42)
[2024-03-27] MEDS: Dexamethasone IV 4 MG/ML VIAL 1 ml VIAL IV SLOW PU ONE (13:47)
[2024-03-27] MEDS: Succinylcholine 200 mg VIAL 20 mg/ml 10 ml VIAL (200 mg) ONE (13:48)
[2024-03-27] MEDS: Midazolam PREMIXBAG 1 MG/ML NS 100 ML IV SCH (13:48)
[2024-03-27] MEDS: Propofol 10 mg/ml 100 ML BTL 1,000 MG/100 ML BTL IV SCH (13:51)
[2024-03-27] MEDS: Propofol 10 mg/ml 100 ML BTL 1,000 MG/100 ML BTL ONE (15:07)
[2024-03-27] MEDS: Midazolam PREMIXBAG 1 MG/ML NS 100 ML IV ONE (15:08)
[2024-03-27] MEDS: fentaNYL INFUSION 50 mcg/mL VL 2,500 MCG/50 ML VIAL IV SCH (15:15)
[2024-03-27] MEDS: Chlorhexidine MOUTHWASH 0.12% 15 ML UDC TOPICAL SCH (15:48)
[2024-03-27 16:02] LABS: Clozapine <25 ng/mL (350-600); Clozapine & Norclozapine Level Unable to calculate ng/mL; Norclozapine <25 ng/mL
[2024-03-27 19:53] LABS: Hepatitis C Antibody Negative (Negative)
[2024-03-27 20:37] LABS: HIV 4th Generation Nonreactive (Nonreactive)
[2024-03-27] MEDS ORDERED: Famotidine IV 10 MG/ML 2 ml VIAL (20 mg) IV SLOW PU SCH (21:00)
[2024-03-27] MEDS ORDERED: NS 0.9% IV SCH (21:02)
[2024-03-27] MEDS ORDERED: CHLORPROMAZINE IV SCH (21:02)
[2024-03-27] MEDS: NS 0.9% IV SCH (21:59)
[2024-03-27] MEDS: CHLORPROMAZINE IV SCH (21:59)
[2024-03-28] MEDS: Naloxone 0.4 mg VIAL 0.4 mg/ml 1 ml VIAL IV PUSH ONE (00:16)
[2024-03-28 00:24] LABS: Resp Rate 16
[2024-03-28 00:26] LABS: PCO2 Arterial 48 mmHg (35-45); PO2 Arterial 402 mmHg (80-100)
[2024-03-28] MEDS: Flumazenil 0.5 mg/5 ml 0.1 MG/ML 5 ml VIAL ONE (04:10)
[2024-03-28] MEDS: Naloxone 0.4 mg VIAL 0.4 mg/ml 1 ml VIAL ONE (04:10)
[2024-03-28 05:08] LABS: Hematocrit 32.8 % (38-53); Mean Corpuscular Hemoglobin 28.7 pg (27-33); Mean Corpuscular Hgb Conc 33.5 g/dL (31-36); Mean Corpuscular Volume 85.9 fL (80-97); Mean Platelet Volume 6.9 fL (7.5-11.2); Platelet Count 483 10^3/uL (150-450); Red Blood Count 3.82 10^6/uL (4.06-5.63); Red Cell Distribution Width 13.1 % (12-17); White Blood Count 13.3 10^3/uL (3.6-10.2)
[2024-03-28 05:21] LABS: Calcium 8.6 mg/dL (8.6-10.3); Creatinine, Serum 0.49 mg/dL (0.67-1.17); Magnesium 2.2 mg/dL (1.9-2.7); Phosphorus 3.8 mg/dL (2.5-5.0); Potassium 4.1 mmol/L (3.5-5.0)
[2024-03-28 06:54] LABS: ABS Basophils 0.1 10^3/uL (0.0-0.1); ABS Eosinophils 0.1 10^3/uL (0.0-0.5); ABS Monocytes 1.8 10^3/uL (0.0-1.1); ABS Neutrophils 8.3 10^3/uL (1.5-7.6); Lymphocyte % 22.4 %
[2024-03-28] MEDS ORDERED: fentaNYL 100 mcg/2 ml 50 MCG/ML VIAL IV SLOW PU PRN (10:43)
[2024-03-28] MEDS: Midazolam 5 mg/5 ml VIAL 1 mg/ml 5 ml VIAL (5 mg) IV SLOW PU PRN (10:55)
[2024-03-28] MEDS: chlorproMAZINE 25 MG/ML 2 ML (50 MG) ONE (12:32)
[2024-03-28] MEDS: Dexamethasone IV 4 MG/ML VIAL 1 ml VIAL IV SLOW PU ONE (12:33)
[2024-03-28] MEDS: HYDROmorphone 1 MG/1 ML SYRINGE IV SLOW PU PRN (12:50)
[2024-03-28] MEDS ORDERED: Midazolam 10 mg/10 ml VIAL 1 mg/ml 10 ml VIAL (10 mg) ONE (13:10)
[2024-03-28] MEDS ORDERED: Succinylcholine 200 mg VIAL 20 mg/ml 10 ml VIAL (200 mg) ONE (13:10)
[2024-03-28] MEDS ORDERED: Etomidate 40 mg/20 ml (2 MG/ML) 20 ml VIAL (40 mg) ONE (13:10)
[2024-03-28] MEDS: HYDROmorphone 1 MG/1 ML SYRINGE ONE (14:07)
[2024-03-29 06:14] LABS: ABS Eosinophils 0.2 10^3/uL (0.0-0.5); ABS Lymphocytes 3.8 10^3/uL (1.0-4.8); ABS Monocytes 1.5 10^3/uL (0.0-1.1); ABS Neutrophils 5.9 10^3/uL (1.5-7.6); ABS Nucleated RBC 0.01 10^3/ul; Hematocrit 32.9 % (38-53); Lymphocyte % 33.5 %; Mean Corpuscular Hemoglobin 28.7 pg (27-33); Mean Corpuscular Hgb Conc 33.4 g/dL (31-36); Mean Platelet Volume 7.1 fL (7.5-11.2); Nucleated Red Blood Cells % 0.1 %/100WBC (0.0-0.8); Platelet Count 544 10^3/uL (150-450); Red Blood Count 3.83 10^6/uL (4.06-5.63); Red Cell Distribution Width 13.2 % (12-17); White Blood Count 11.5 10^3/uL (3.6-10.2)
[2024-03-29 07:34] LABS: Calcium 8.8 mg/dL (8.6-10.3); Creatinine, Serum 0.48 mg/dL (0.67-1.17); Phosphorus 4.1 mg/dL (2.5-5.0); Potassium 4.3 mmol/L (3.5-5.0); eGFR CKD-EPI 147.9 (>60)
[2024-03-29] MEDS ORDERED: Sulfur Hexaflouride MICROSPHR 25 MG VIAL IV PRN (09:56)
[2024-03-29] MEDS: Dexamethasone IV 4 MG/ML VIAL 1 ml VIAL IV SLOW PU SCH (12:34)
[2024-03-30 05:47] LABS: ABS Eosinophils 0.2 10^3/uL (0.0-0.5); ABS Lymphocytes 3.4 10^3/uL (1.0-4.8); ABS Monocytes 1.2 10^3/uL (0.0-1.1); Eosinophil % 2.2 %; Lymphocyte % 34.1 %; Mean Corpuscular Hemoglobin 28.1 pg (27-33); Mean Corpuscular Hgb Conc 32.4 g/dL (31-36); Mean Corpuscular Volume 86.5 fL (80-97); Platelet Count 599 10^3/uL (150-450); Red Blood Count 3.93 10^6/uL (4.06-5.63); Red Cell Distribution Width 13.1 % (12-17); White Blood Count 9.8 10^3/uL (3.6-10.2)
[2024-03-30 06:31] LABS: Albumin/Globulin Ratio 1.3 (1-3); Calcium 8.6 mg/dL (8.6-10.3); Creatinine, Serum 0.55 mg/dL (0.67-1.17); Globulin 2.4 g/dL (2-4); Potassium 4.2 mmol/L (3.5-5.0); Total Bilirubin 0.3 mg/dL (0.2-1.0); Total Protein 5.4 g/dL (6.4-8.9); eGFR CKD-EPI 141.9 (>60)
[2024-03-30 10:28] LABS: Creatine Kinase 224 U/L (10-223); Triglycerides 175 mg/dL
[2024-03-30 11:05] LABS: Cytomegalovirus IgG Antibody Negative (Negative)
[2024-03-30 14:41] LABS: CMV DNA DETECT/QT, P Undetected IU/mL (Undetected)
[2024-03-30 14:50] LABS: EBV Capsid Ag IgG Ab Positive (Negative); EBV Capsid Ag IgM Ab Negative (Negative); Epstein-Barr Nuclear Antigen Positive (Negative)
[2024-03-30 15:13] LABS: Parvovirus (B19) IgG Antibody Negative (Negative); Parvovirus (B19) IgM Antibody Negative (Negative)
[2024-03-31 06:54] LABS: ABS Eosinophils 0.3 10^3/uL (0.0-0.5); ABS Monocytes 1.3 10^3/uL (0.0-1.1); ABS Neutrophils 4.9 10^3/uL (1.5-7.6); ABS Nucleated RBC 0.01 10^3/ul; Eosinophil % 3.3 %; Hematocrit 32.1 % (38-53); Hemoglobin 10.5 g/dL (13.2-16.3); Lymphocyte % 37.7 %; Mean Corpuscular Hemoglobin 28.2 pg (27-33); Mean Corpuscular Hgb Conc 32.9 g/dL (31-36); Mean Corpuscular Volume 85.7 fL (80-97); Mean Platelet Volume 6.6 fL (7.5-11.2); Nucleated Red Blood Cells % 0.1 %/100WBC (0.0-0.8); Platelet Count 588 10^3/uL (150-450); Red Blood Count 3.74 10^6/uL (4.06-5.63); Red Cell Distribution Width 13.4 % (12-17); White Blood Count 10.7 10^3/uL (3.6-10.2)
[2024-03-31 07:43] LABS: Calcium 8.5 mg/dL (8.6-10.3); Creatinine, Serum 0.53 mg/dL (0.67-1.17); Magnesium 1.8 mg/dL (1.9-2.7); Potassium 3.8 mmol/L (3.5-5.0); eGFR CKD-EPI 143.5 (>60)
[2024-03-31] MEDS: Magnesium Sulfate 2 gm BAG 2 GM/50 ML BAG IVPB ONE (09:10)
[2024-03-31] MEDS: Potassium Chloride LIQUID 20 MEQ/15 ML LIQUID NG TUBE ONE (10:55)
[2024-03-31] MEDS: methylPREDNISolone SOD SUCC 40 mg/ml 1 ml VIAL IV ONE (11:40)
[2024-03-31] MEDS: methylPREDNISolone SOD SUCC 125 mg 2 ML VIAL IV ONE (13:08)
[2024-03-31] MEDS: Albuterol/Ipratropium NEB.SOL (2.5/0.5 MG) 3 ML NEB.SOLN INH SCH ×2 (13:52→18:42)
[2024-03-31] MEDS: Midazolam 5 mg/5 ml VIAL 1 mg/ml 5 ml VIAL (5 mg) IV SLOW PU ONE (15:50)
[2024-03-31] MEDS: Albuterol/Ipratropium NEB.SOL (2.5/0.5 MG) 3 ML NEB.SOLN ONE (16:38)
[2024-04-01 06:32] LABS: ABS Basophils 0.1 10^3/uL (0.0-0.1); ABS Eosinophils 0.1 10^3/uL (0.0-0.5); ABS Lymphocytes 3.4 10^3/uL (1.0-4.8); ABS Monocytes 1.5 10^3/uL (0.0-1.1); ABS Neutrophils 5.3 10^3/uL (1.5-7.6); ABS Nucleated RBC 0.01 10^3/ul; Eosinophil % 1.2 %; Hematocrit 29.5 % (38-53); Hemoglobin 9.9 g/dL (13.2-16.3); Mean Corpuscular Hemoglobin 28.7 pg (27-33); Mean Corpuscular Hgb Conc 33.5 g/dL (31-36); Mean Corpuscular Volume 85.8 fL (80-97); Mean Platelet Volume 6.8 fL (7.5-11.2); Nucleated Red Blood Cells % 0.1 %/100WBC (0.0-0.8); Platelet Count 634 10^3/uL (150-450); Red Blood Count 3.43 10^6/uL (4.06-5.63); Red Cell Distribution Width 13.3 % (12-17); White Blood Count 10.4 10^3/uL (3.6-10.2)
[2024-04-01 07:41] LABS: Albumin/Globulin Ratio 1.4 (1-3); Creatinine, Serum 0.46 mg/dL (0.67-1.17); Globulin 2.2 g/dL (2-4); Phosphorus 4.3 mg/dL (2.5-5.0); Potassium 4.2 mmol/L (3.5-5.0); Total Bilirubin 0.4 mg/dL (0.2-1.0); Total Protein 5.2 g/dL (6.4-8.9); eGFR CKD-EPI 149.8 (>60)
[2024-04-01 12:40] LABS: Immature Retic Fraction 0.53
[2024-04-01 12:42] LABS: Corrected Retic Count 0.5 % (0.5-2.2)
[2024-04-01 12:43] LABS: Hematocrit for Retic CNT 29.6 % (38-53); RBC Retic Count 3.45 10^6/ul (4.06-5.63)
[2024-04-01 13:46] LABS: TSH Ultra Thyroid Stim Horm 1.04 mcIU/mL (0.34-5.60)
[2024-04-02 04:29] LABS: Hematocrit 29.8 % (38-53); Mean Corpuscular Hemoglobin 28.4 pg (27-33); Mean Corpuscular Hgb Conc 33.6 g/dL (31-36); Mean Corpuscular Volume 84.6 fL (80-97); Mean Platelet Volume 6.6 fL (7.5-11.2); Platelet Count 716 10^3/uL (150-450); Red Blood Count 3.53 10^6/uL (4.06-5.63); Red Cell Distribution Width 13.2 % (12-17); White Blood Count 16.1 10^3/uL (3.6-10.2)
[2024-04-02 05:02] LABS: Albumin/Globulin Ratio 1.4 (1-3); Calcium 8.8 mg/dL (8.6-10.3); Creatinine, Serum 0.57 mg/dL (0.67-1.17); Globulin 2.2 g/dL (2-4); Phosphorus 3.7 mg/dL (2.5-5.0); Potassium 4.1 mmol/L (3.5-5.0); Total Bilirubin 0.9 mg/dL (0.2-1.0); Total Protein 5.2 g/dL (6.4-8.9); eGFR CKD-EPI 140.4 (>60)
[2024-04-02 05:03] LABS: ABS Basophils 0.2 10^3/uL (0.0-0.1); ABS Eosinophils 0.1 10^3/uL (0.0-0.5); ABS Neutrophils 9.7 10^3/uL (1.5-7.6); ABS Nucleated RBC 0.01 10^3/ul; Eosinophil % 0.9 %; Lymphocyte % 25.1 %; Nucleated Red Blood Cells % 0.1 %/100WBC (0.0-0.8)
[2024-04-02] MEDS: PHENobarbital IV 65 MG/ML 1 ml VIAL IV ONE ×2 (14:17→17:08)
[2024-04-02] MEDS: HYDROMORPHONE HP IV SCH ×2 (14:51→15:41)
[2024-04-02] MEDS: NS 0.9% IV SCH ×2 (14:51→15:41)
[2024-04-02] MEDS: PHENobarbital IV 65 MG/ML 1 ml VIAL ONE (16:13)
[2024-04-03] MEDS: PHENobarbital IV 65 MG/ML 1 ml VIAL IV SCH (00:55)
[2024-04-03 04:30] LABS: Hematocrit 32.2 % (38-53); Hemoglobin 10.8 g/dL (13.2-16.3); Mean Corpuscular Hemoglobin 28.5 pg (27-33); Mean Corpuscular Hgb Conc 33.4 g/dL (31-36); Mean Corpuscular Volume 85.2 fL (80-97); Mean Platelet Volume 6.7 fL (7.5-11.2); Platelet Count 799 10^3/uL (150-450); Red Blood Count 3.78 10^6/uL (4.06-5.63); Red Cell Distribution Width 13.3 % (12-17); White Blood Count 16.3 10^3/uL (3.6-10.2)
[2024-04-03 04:35] LABS: ABS Basophils 0.1 10^3/uL (0.0-0.1); ABS Eosinophils 0.2 10^3/uL (0.0-0.5); ABS Lymphocytes 3.9 10^3/uL (1.0-4.8); ABS Monocytes 2.2 10^3/uL (0.0-1.1); ABS Nucleated RBC 0.01 10^3/ul; Lymphocyte % 23.8 %
[2024-04-03 04:55] LABS: Albumin 3.3 g/dL (3.2-5.2); Albumin/Globulin Ratio 1.3 (1-3); Calcium 8.7 mg/dL (8.6-10.3); Creatinine, Serum 0.5 mg/dL (0.67-1.17); Globulin 2.6 g/dL (2-4); Magnesium 1.9 mg/dL (1.9-2.7); Phosphorus 3.1 mg/dL (2.5-5.0); Potassium 3.8 mmol/L (3.5-5.0); Total Bilirubin 0.8 mg/dL (0.2-1.0); Total Protein 5.9 g/dL (6.4-8.9); eGFR CKD-EPI 146.1 (>60)
[2024-04-03 09:54] LABS: PCO2 Arterial 42 mmHg (35-45); PO2 Arterial 108 mmHg (80-100)
[2024-04-03] MEDS: Albuterol 2.5mg/3 ml (0.083%) NEB.SOLN INH ONE (11:29)
[2024-04-03] MEDS: chlorproMAZINE 25 MG/ML 2 ML (50 MG) IM ONE (11:58)
[2024-04-03] MEDS: PHENobarbital IV 65 MG/ML 1 ml VIAL IM ONE ×3 (12:02→13:21)
[2024-04-03] MEDS ORDERED: chlorproMAZINE 25 MG/ML 2 ML (50 MG) IV SCH ×2 (13:00→14:00)
[2024-04-03] MEDS: PHENobarbital IV 65 MG/ML 1 ml VIAL ONE (13:02)
[2024-04-03] MEDS ORDERED: Albuterol/Ipratropium NEB.SOL (2.5/0.5 MG) 3 ML NEB.SOLN INH PRN (13:15)
[2024-04-03] MEDS: Midazolam 10 mg/10 ml VIAL 1 mg/ml 10 ml VIAL (10 mg) IV SLOW PU ONE (13:15)
[2024-04-03] MEDS: chlorproMAZINE 25 MG/ML 2 ML (50 MG) ONE (13:20)
[2024-04-03] MEDS: chlorproMAZINE INJ 50 MG in NS 0.9% 50 ML IV SCH ×2 (13:21→13:29)
[2024-04-03] MEDS ORDERED: Midazolam 10 mg/10 ml VIAL 1 mg/ml 10 ml VIAL (10 mg) IV SLOW PU PRN ×2 (13:41→13:47)
[2024-04-03] MEDS ORDERED: Midazolam 5 mg/5 ml VIAL 1 mg/ml 5 ml VIAL (5 mg) IV SLOW PU PRN (13:51)
[2024-04-03] MEDS: Midazolam 5 mg/5 ml VIAL 1 mg/ml 5 ml VIAL (5 mg) IV SLOW PU PRN (14:06)
[2024-04-03] MEDS ORDERED: PHENobarbital IV 65 MG/ML 1 ml VIAL IV PRN (16:56)
[2024-04-03 17:49] LABS: Urine Appearance Turbid; Urine Bilirubin Negative (Negative); Urine Blood 3+ (Negative); Urine Color Yellow; Urine Glucose Negative (Negative); Urine Ketones Trace (Negative); Urine Nitrite Negative (Negative); Urine Protein 1+ (>=30 mg/dL) (Negative); Urine Specific Gravity 1.015 (1.002-1.030); Urine Urobilinogen 1+ (Negative)
[2024-04-03 17:58] LABS: Urine Amorphous Crystals Present /HPF (Absent); Urine Bacteria 1+ /HPF (Absent); Urine Red Blood Cell 3+(>10/hpf) /HPF (0-Trace); Urine Squamous Epithelial Cell Present /HPF (Absent); Urine Transitional Epithelial Present /HPF (Absent); Urine White Blood Cell 1+(6-10/hpf) /HPF (0-Trace)
[2024-04-03] MEDS: Ondansetron 4 mg VIAL 2 MG/ML 2 ml VIAL IV PRN (19:16)
[2024-04-03] MEDS: Ondansetron 4 mg VIAL 2 MG/ML 2 ml VIAL ONE (21:10)
[2024-04-03] MEDS ORDERED: Ondansetron 4 mg VIAL 2 MG/ML 2 ml VIAL IV PRN (23:00)
[2024-04-04] MEDS: OLANZapine IM (NF) 10 MG VIAL IM ONE (00:08)
[2024-04-04] MEDS: Pantoprazole VIAL 40 MG VIAL IV SCH (00:21)
[2024-04-04 04:27] LABS: Hematocrit 36.8 % (38-53); Hemoglobin 12.1 g/dL (13.2-16.3); Mean Corpuscular Hemoglobin 28.1 pg (27-33); Mean Corpuscular Hgb Conc 32.8 g/dL (31-36); Mean Corpuscular Volume 85.6 fL (80-97); Mean Platelet Volume 6.6 fL (7.5-11.2); Platelet Count 833 10^3/uL (150-450); Red Blood Count 4.29 10^6/uL (4.06-5.63); Red Cell Distribution Width 13.7 % (12-17)
[2024-04-04 05:30] LABS: ABS Basophils 0.1 10^3/uL (0.0-0.1); ABS Eosinophils 0.3 10^3/uL (0.0-0.5); ABS Lymphocytes 3.5 10^3/uL (1.0-4.8); ABS Monocytes 1.9 10^3/uL (0.0-1.1); ABS Neutrophils 11.2 10^3/uL (1.5-7.6); ABS Nucleated RBC 0.02 10^3/ul; Eosinophil % 1.8 %; Lymphocyte % 20.3 %; Nucleated Red Blood Cells % 0.1 %/100WBC (0.0-0.8)
[2024-04-04 05:51] LABS: Albumin 3.4 g/dL (3.2-5.2); Albumin/Globulin Ratio 1.3 (1-3); Creatinine, Serum 0.47 mg/dL (0.67-1.17); Globulin 2.6 g/dL (2-4); Magnesium 1.9 mg/dL (1.9-2.7); Potassium 3.5 mmol/L (3.5-5.0); Total Bilirubin 1.1 mg/dL (0.2-1.0); eGFR CKD-EPI 148.8 (>60)
[2024-04-05 04:31] LABS: Hematocrit 35.5 % (38-53); Mean Corpuscular Hemoglobin 28.6 pg (27-33); Mean Corpuscular Hgb Conc 33.9 g/dL (31-36); Mean Corpuscular Volume 84.4 fL (80-97); Mean Platelet Volume 6.9 fL (7.5-11.2); Platelet Count 833 10^3/uL (150-450); Red Blood Count 4.21 10^6/uL (4.06-5.63); Red Cell Distribution Width 13.5 % (12-17); White Blood Count 16.2 10^3/uL (3.6-10.2)
[2024-04-05 04:39] LABS: ABS Basophils 0.1 10^3/uL (0.0-0.1); ABS Eosinophils 0.7 10^3/uL (0.0-0.5); ABS Lymphocytes 2.9 10^3/uL (1.0-4.8); ABS Monocytes 1.6 10^3/uL (0.0-1.1); ABS Neutrophils 10.8 10^3/uL (1.5-7.6); Eosinophil % 4.3 %; Lymphocyte % 18.2 %
[2024-04-05 05:12] LABS: Albumin 3.4 g/dL (3.2-5.2); Albumin/Globulin Ratio 1.4 (1-3); Creatinine, Serum 0.51 mg/dL (0.67-1.17); Globulin 2.5 g/dL (2-4); Magnesium 1.8 mg/dL (1.9-2.7); Phosphorus 3.5 mg/dL (2.5-5.0); Potassium 3.4 mmol/L (3.5-5.0); Total Bilirubin 0.9 mg/dL (0.2-1.0); Total Protein 5.9 g/dL (6.4-8.9); eGFR CKD-EPI 145.2 (>60)
[2024-04-05] MEDS: Potassium Chlor 20 meq TAB.ER PO ONE (05:21)
[2024-04-05] MEDS: Magnesium Sulfate 2 gm BAG 2 GM/50 ML BAG IVPB ONE (05:25)
[2024-04-06 05:12] LABS: ABS Basophils 0.2 10^3/uL (0.0-0.1); ABS Eosinophils 0.9 10^3/uL (0.0-0.5); ABS Lymphocytes 3.7 10^3/uL (1.0-4.8); ABS Monocytes 1.5 10^3/uL (0.0-1.1); ABS Neutrophils 7.9 10^3/uL (1.5-7.6); Eosinophil % 6.1 %; Hematocrit 36.9 % (38-53); Hemoglobin 12.2 g/dL (13.2-16.3); Lymphocyte % 25.9 %; Mean Corpuscular Hemoglobin 28.3 pg (27-33); Mean Corpuscular Volume 85.6 fL (80-97); Platelet Count 829 10^3/uL (150-450); Red Blood Count 4.31 10^6/uL (4.06-5.63); Red Cell Distribution Width 13.7 % (12-17); White Blood Count 14.2 10^3/uL (3.6-10.2)
[2024-04-06 05:53] LABS: Albumin 3.5 g/dL (3.2-5.2); Albumin/Globulin Ratio 1.3 (1-3); Calcium 8.9 mg/dL (8.6-10.3); Creatinine, Serum 0.57 mg/dL (0.67-1.17); Globulin 2.6 g/dL (2-4); Magnesium 1.9 mg/dL (1.9-2.7); Phosphorus 3.7 mg/dL (2.5-5.0); Potassium 3.8 mmol/L (3.5-5.0); Total Bilirubin 0.6 mg/dL (0.2-1.0); Total Protein 6.1 g/dL (6.4-8.9); eGFR CKD-EPI 140.4 (>60)
[2024-04-06 09:28] LABS: TSH Ultra Thyroid Stim Horm 1.52 mcIU/mL (0.34-5.60)
[2024-04-06] MEDS: Metoprolol Tartrate 5 mg VIAL 5 ml VIAL (1 mg/ml) IV ONE (10:35)
[2024-04-06] MEDS: Lactated Ringers 1000 ml BAG 500 ML IV ONE (10:44)
[2024-04-06 15:54] LABS: High Sensitivity Troponin 3 Hr < 3 pg/mL (<20)
[2024-04-07 06:14] LABS: ABS Basophils 0.2 10^3/uL (0.0-0.1); ABS Eosinophils 0.7 10^3/uL (0.0-0.5); ABS Lymphocytes 2.7 10^3/uL (1.0-4.8); ABS Monocytes 1.1 10^3/uL (0.0-1.1); ABS Neutrophils 8.3 10^3/uL (1.5-7.6); Eosinophil % 5.4 %; Hematocrit 36.6 % (38-53); Lymphocyte % 20.8 %; Mean Corpuscular Hgb Conc 32.8 g/dL (31-36); Mean Corpuscular Volume 85.3 fL (80-97); Mean Platelet Volume 7.2 fL (7.5-11.2); Platelet Count 766 10^3/uL (150-450); Red Blood Count 4.29 10^6/uL (4.06-5.63); Red Cell Distribution Width 13.9 % (12-17); White Blood Count 13.1 10^3/uL (3.6-10.2)
[2024-04-07 06:30] LABS: Albumin 3.3 g/dL (3.2-5.2); Albumin/Globulin Ratio 1.3 (1-3); Calcium 8.8 mg/dL (8.6-10.3); Creatinine, Serum 0.57 mg/dL (0.67-1.17); Globulin 2.5 g/dL (2-4); Magnesium 1.9 mg/dL (1.9-2.7); Total Bilirubin 0.6 mg/dL (0.2-1.0); Total Protein 5.8 g/dL (6.4-8.9); eGFR CKD-EPI 140.4 (>60)
[2024-04-08] MEDS: Pantoprazole VIAL 40 MG VIAL IV SCH (08:04)
[2024-04-11 07:54] LABS: ABS Basophils 0.1 10^3/uL (0.0-0.1); ABS Lymphocytes 2.3 10^3/uL (1.0-4.8); ABS Monocytes 1.3 10^3/uL (0.0-1.1); ABS Neutrophils 12.8 10^3/uL (1.5-7.6); Eosinophil % 5.6 %; Hematocrit 41.9 % (38-53); Hemoglobin 13.8 g/dL (13.2-16.3); Mean Corpuscular Hemoglobin 28.4 pg (27-33); Mean Corpuscular Hgb Conc 32.9 g/dL (31-36); Mean Corpuscular Volume 86.3 fL (80-97); Mean Platelet Volume 8.3 fL (7.5-11.2); Platelet Count 571 10^3/uL (150-450); Red Blood Count 4.85 10^6/uL (4.06-5.63); Red Cell Distribution Width 14.4 % (12-17); White Blood Count 17.5 10^3/uL (3.6-10.2)
[2024-04-11 08:56] LABS: Albumin 4.3 g/dL (3.2-5.2); Albumin/Globulin Ratio 1.5 (1-3); Calcium 9.8 mg/dL (8.6-10.3); Creatinine, Serum 0.66 mg/dL (0.67-1.17); Globulin 2.9 g/dL (2-4); HDL Cholesterol 35.7 mg/dL; Total Bilirubin 0.7 mg/dL (0.2-1.0); Total Protein 7.2 g/dL (6.4-8.9); eGFR CKD-EPI 134.3 (>60)
[2024-04-11] MEDS ORDERED: Benzocaine/Menthol LOZ PO PRN (15:25)
[2024-04-12 11:19] VITALS: BP 118/71
[2024-04-13 06:05] LABS: Urine Appearance Clear; Urine Bilirubin Negative (Negative); Urine Blood Negative (Negative); Urine Color Light-Yellow; Urine Glucose Negative (Negative); Urine Ketones Negative (Negative); Urine Nitrite Negative (Negative); Urine Protein Negative (Negative); Urine Specific Gravity 1.009 (1.002-1.030); Urine Urobilinogen Negative (Negative)
== END 2024-04-13 16:20 | disposition home or self-care (01) | DRG 812 ==
LOC: ED 16:31 → SUATTDRO 19:26 → EDHOLD 19:26 → ICU 19:53 → MED 04-06 17:46 → BSU 04-10 14:02
PROVIDERS: ADMIT Internal Medicine Critical Care Medicine; ATTEND Psychiatry & Neurology Psychiatry